=== PATIENT | female | born 1950 | race Caucasian/White ===

== ENCOUNTER 2017-11-02 14:10 | Emergency (ER) | payer MEDICARE ==
[~2017-11-02] VITALS: Ht 154.9 cm; Wt 68.0 kg
[2017-11-02 14:20] VITALS: BP 122/66; PULSE 64; RESP 18; TEMP 98.1; O2SAT 96
[2017-11-02] MEDS ORDERED: ATEN50TA PO (14:29)
[2017-11-02] MEDS ORDERED: AZIT250T3 PO (14:48)
[2017-11-02] MEDS ORDERED: BENZ100 PO (14:49)
--- NOTE | 2017-11-02 14:50 | PD ---
HPI Chief Complaint: Cold / Flu Symptoms Time Seen by Provider: 14:37 Travel History International Travel<30 days: No Contact w/Intl Traveler<30days: No Traveled to known affect area: No History of Present Illness HPI 66-year-old female here with productive cough 4 days. Subjective fever. Symptoms severity is moderate. No aggravating or alleviating factors. No sick contacts. No foreign travel. Similar symptoms in the past of bronchitis PFSH Past Medical History Cardiovascular Problems: Yes Past Surgical History Section: Yes (X2) Tonsillectomy: Yes Social History Alcohol Use: No Tobacco Use: No Substance Use: No Allergies-Medications (Allergen,Severity, Reaction): Coded Allergies: Sulfa (Sulfonamide Antibiotics) (Verified Adverse Reaction, Unknown, RASH , 11/02/17) Reported Meds & Prescriptions Reported Meds & Active Scripts Active Reported Atenolol 50 Mg Tab 50 Mg PO DAILY Review of Systems Except as stated in HPI: all other systems reviewed are Neg General / Constitutional: Positive: Fever Eyes: No: Visual changes Cardiovascular: No: Chest Pain or Discomfort Respiratory: Positive: Cough Gastrointestinal: No: Abdominal Pain Genitourinary: No: Dysuria Physical Exam Narrative GENERAL: Alert well-appearing female. SKIN: Warm and dry. HEAD: Atraumatic. Normocephalic. EYES: Pupils equal and round. No injection or drainage. ENT: No nasal bleeding or discharge. Mucous membranes pink and moist. Mild pharyngeal erythema. NECK: Trachea midline. CARDIOVASCULAR: Regular rate and rhythm. RESPIRATORY: No accessory muscle use. Clear to auscultation. Breath sounds equal bilaterally. Rhonchorous cough GASTROINTESTINAL: Abdomen soft, non-tender, nondistended. Data Data Last Documented VS Vital Signs Date Time Temp Pulse Resp B/P (MAP) Pulse Ox O2 Delivery O2 Flow Rate FiO2 11/02/17 14:20 98.1 64 18 122/66 (84) 96 MDM Medical Decision Making Medical Screen Exam Complete: Yes Emergency Medical Condition: Yes Differential Diagnosis Bronchitis, pneumonia, influenza Narrative Course 66-year-old female here with productive cough 4 days. Vital signs are stable. She has a rhonchorous sounding cough. She'll be treated with azithromycin Diagnosis Primary Impression: Bronchitis Referrals: Primary Care Physician Scripts Benzonatate (Tessalon Perleliel) 100 Mg Cap 200 MG PO TID Y for COUGH for 3 Days, CAP 0 Refills Prov: Jennifer Cintron 11/02/17 Azithromycin (Azithromycin) 250 Mg Tab 250 MG PO DIRECTED for Infection, #6 TAB 0 Refills Take 2 tabs (500 mg) on day 1 then 1 tab daily x 4 days. Prov: Jennifer Cintron 11/02/17 Disposition: 01 DISCHARGE HOME Condition: Stable Jennifer Cintron Nov 02, 2017 14:50
== END 2017-11-02 15:01 | disposition home or self-care (01) ==
LOC: PHEFT 14:10
DX: J40 Bronchitis, not specified as acute or chronic (principal)
CPT/HCPCS: 99284